=== PATIENT | male | born 1995 | race Caucasian/White ===

== ENCOUNTER 2019-10-17 08:40 | Emergency (ER) | payer OTHER ==
[2019-10-17 08:45] VITALS: BP 132/80
--- NOTE | 2019-10-17 09:32 | RADIOLOGY REPORT (SQ) ---
EXAM DESCRIPTION: HAND RIGHT 3 VIEWS IMAGES COMPLETED DATE/TIME: 10/17/2019 9:14 am REASON FOR STUDY: Hit hand on wall COMPARISON: None. EXAM PARAMETERS: NUMBER OF VIEWS: Three views. TECHNIQUE: AP, lateral and oblique radiographic images acquired of the right hand. LIMITATIONS: None. FINDINGS: MINERALIZATION: Normal. BONES: There is a comminuted slightly angulated fracture of the distal 5th metacarpal. No significan t displacement. JOINTS: No effusions. SOFT TISSUES: No soft tissue swelling. No foreign body. OTHER: No other significant finding. IMPRESSION: Boxer's fracture of the distal 5th metacarpal with slight angulation. TECHNICAL DOCUMENTATION: JOB ID: [id number] 2010 [employer]- All Rights Reserved Reading location - IP/workstation name: [email or web address]
--- NOTE | 2019-10-17 10:18 | ER Document Report ---
HPI - HPI Time Seen by Provider: 10/17/19 10:05 Pain Level: 4 Context: Patient is a 24-year-old male who presents emergency department with a chief complaint of right hand swelling. Patient punched a wall 4 days ago. States that the swelling continues. Denies any past medical history. He does not take any medications. - ROS Systems Reviewed and Negative: Yes All other systems reviewed and negative - REPRODUCTIVE Reproductive: DENIES: : - MUSCULOSKELETAL Musculoskeletal: REPORTS: Extremity pain - R Hand, Swelling - right hand - DERM Skin Color: Normal Skin Problems: None, Bruise - right hand Past Medical History - General Information source: Patient - Social History Smoking Status: Current Every Day Smoker Chew tobacco use (# tins/day): No Frequency of alcohol use: Heavy Drug Abuse: None Family History: Reviewed & Not Pertinent Patient has homicidal ideation: No Renal/ Medical History: Reports: Hx Kidney Stones Past Surgical History: Reports: Hx Appendectomy, Hx Oral Surgery - Immunizations Hx Diphtheria, Pertussis, Tetanus Vaccination: Yes Vertical Provider Document - CONSTITUTIONAL Agree With Documented VS: Yes Exam Limitations: No Limitations General Appearance: No Apparent Distress - INFECTION CONTROL TRAVEL OUTSIDE OF THE [place] IN LAST 30 DAYS: No - HEENT HEENT: Atraumatic, Normocephalic, PERRLA - NECK Neck: Normal Inspection - RESPIRATORY Respiratory: No Respiratory Distress - CARDIOVASCULAR Cardiovascular: Regular Rate, Regular Rhythm Pulses: Normal: Radial - MUSCULOSKELETAL/EXTREMETIES Musculoskeletal/Extremeties: FROM, Tender - Right hand at distal fifth metacarpal, Edema - Right hand, Eccymosis - Right hand - NEURO Level of Consciousness: Awake, Alert, Appropriate Motor/Sensory: No Motor Deficit, No Sensory Deficit - DERM Integumentary: Warm, Dry, No Rash Course - Re-evaluation Re-evalutation: 10/17/19 10:15 Patient's x-ray is consistent with a boxer's fracture. He will be placed in a splint. Capillary refill less than 3 seconds. Radial pulse 2+. No vascular compromise noted. Patient will follow-up with his primary care provider and orthopedics in regards to this visit. Follow-up precautions were given. Verbal discharge instructions were given to the patient. They verbalized understanding. They are stable for discharge. - Vital Signs Vital signs: Temp Pulse Resp BP Pulse Ox 98.7 F 71 16 132/80 H 97 10/17/19 08:44 10/17/19 08:44 10/17/19 08:44 10/17/19 08:44 10/17/19 08:44 Procedures - Immobilization Right Hand Pre-Proc Neuro Vasc Exam: Normal Immobilizer type: Ulnar Performed by: PCT Post-Proc Neuro Vasc Exam: Normal, Unchanged from pre-exam Alignment checked and good: Yes Discharge - Discharge Clinical Impression: Boxers fracture Qualifiers: Encounter type: initial encounter Fracture type: closed Qualified Code(s): S62.339A - Displaced fracture of neck of unspecified metacarpal bone, initial encounter for closed fracture Condition: Stable Disposition: HOME, SELF-CARE Additional Instructions: You were seen today in the emergency department for right hand pain. You have a boxer's fracture. Take ibuprofen 600 mg every 6 hours. Follow-up with your primary care provider and follow-up with orthopedics in regards to this visit. Keep your splint on until you are cleared by orthopedics. Forms: Return to Work Referrals: CLAUDIA HADDAD MD [ACTIVE STAFF] - Follow up in 3-5 days
== END 2019-10-17 10:41 | disposition home or self-care (01) ==
LOC: ER 08:40
DX: S62.339A Displaced fracture of neck of unspecified metacarpal bone, initial encounter for closed fracture (principal); M79.89 Other specified soft tissue disorders; W22.09XA Striking against other stationary object, initial encounter; F17.200 Nicotine dependence, unspecified, uncomplicated
CPT/HCPCS: 99283